=== PATIENT | female | born 1995 | race Caucasian/White ===

== ENCOUNTER 2022-09-11 07:19 | Outpatient (CLI) | payer BC, SELFPAY ==
--- NOTE | ~2022-09-11 | XR_ITS ---
Supine views of the abdomen Clinical history: Abdominal bloating Findings: Bowel gas pattern is nonspecific. No evidence for obstruction or free air. No abnormal mass lesion or calcification is seen. Osseous structures are intact. Impression: No significant abnormality is seen. Reviewed, dictated and finalized at location [] [employer]IST Impression: No significant abnormality is seen.
[2022-09-11 07:50] LABS: Add Urine Microscopic? YES; Appearance Urine Clear (Clear); Basophils Absolute Auto 0.05 K/mm3 (0.00-0.10); Basophils Percent Auto 0.9 % (0.0-1.0); Bilirubin Urine Negative (Negative); Blood Urine Trace-Intact (Negative); Color Urine Yellow (Yellow); Eosinophils Absolute Auto 0.17 K/mm3 (0.02-0.50); Glucose Urine UA Negative (Negative); Hematocrit 37.8 % (35.0-49.0); Hemoglobin 12.8 g/dL (12.0-15.0); Immature Granulocyte Absolute 0.03 K/mm3 (0.00-0.00); Immature Granulocyte Percent A 0.5 % (0.0-0.0); Ketones Urine Negative (Negative); Leukocyte Esterase Ur Negative LEU/UL (Negative); Lymphocytes Absolute Auto 1.64 K/mm3 (1.10-4.50); Mean Corpuscular HGB Conc 33.9 g/dL (32.0-36.0); Mean Corpuscular Hemoglobin 32.1 pg (27.0-31.0); Mean Corpuscular Volume 94.7 fL (78.0-102.0); Mean Platelet Volume 11.1 fl (9.2-11.8); Monocytes Absolute Auto 0.37 K/mm3 (0.10-0.90); Monocytes Percent Auto 6.5 % (2.0-11.0); Neutrophils Absolute Auto 3.4 K/mm3 (1.7-7.2); Neutrophils Percent Auto 60.1 % (50.0-70.0); Nitrate Urine Negative (Negative); Platelet Count Result 200 K/mm3 (150-420); Protein Urine Negative (Negative); Red Blood Count 3.99 M/mm3 (4.20-5.40); Red Cell Distribution Width 12.1 % (11.6-14.4); Specific Grav Ur >= 1.030 (1.010-1.020); Urobilinogen Urine 0.2 mg/dL (0.2-1.0); White Blood Count 5.7 K/mm3 (4.8-10.8)
[2022-09-11 08:21] LABS: Bacteria Urine 1+ /hpf; RBC Urine None seen /hpf (0-2); Squamous Epithelial Cell Urine Moderate /hpf (Few); WBC Urine 0-3 /hpf (0-3)
[2022-09-11 08:52] LABS: Erythrocyte Sedimentation Rate 8 mm/hr (0-15)
[2022-09-11 08:56] LABS: Alanine Aminotransferase 24 U/L (14-59); Albumin Level 4.5 g/dL (3.4-5.0); Alkaline Phosphatase 31 U/L (46-116); Anion Gap 10 mmol/L (8-16); Aspartate Amino Transferase 14 U/L (15-37); Blood Urea Nitrogen 16 mg/dL (7-18); Calcium 9.3 mg/dL (8.5-10.1); Carbon Dioxide 27 mmol/L (21-32); Chloride 104 mmol/L (98-108); Estimated Glomerular Filt Rate > 60; Glucose 92 mg/dL (70-99); Osmolality Calculated 293 mOsm/kg (285-295); Potassium 3.8 mmol/L (3.5-5.1); Sodium 141 mmol/L (136-145); Total Protein 7.4 g/dL (6.4-8.2)
[2022-09-11 08:59] LABS: CRP < 0.5 mg/dL (0.0-0.9)
[2022-09-11 11:23] LABS: Thyroid Stimulating Hormone Reflex 2.04 u/IU/mL (0.36-3.74)
[2022-09-15 10:48] LABS: Tissue Transglutaminase IgA Ab <1.0 U/mL (<15.0)
[2022-09-15 21:28] LABS: Immunoglobulin A 136 mg/dL (47-310)
[2022-09-16 16:33] LABS: H pylori Ag Stool Not Detected (Not Detected)
[2022-09-16 16:45] LABS: Tissue Transglutaminase IgG Ab <1.0 U/mL (<15.0)
[2022-09-18 21:12] LABS: Calprotectin, Stool 93 mcg/g
== END 2022-09-11 07:20 | disposition home or self-care (01) ==
PROVIDERS: PCP Family Medicine
DX: K21.9 Gastro-esophageal reflux disease without esophagitis (principal); R14.0 Abdominal distension (gaseous); R10.13 Epigastric pain; R19.8 Other specified symptoms and signs involving the digestive system and abdomen; R10.9 Unspecified abdominal pain
CPT/HCPCS: 36415; 74018; 80053; 81001; 81005; 82784; 83516; 83993; 84443; 85025; 85652; 86003; 86140; 87045; 87338; 87427; 87493

== ENCOUNTER 2022-11-18 11:35 | Outpatient (CLI) | payer BC, SELFPAY ==
--- NOTE | ~2022-11-18 | XR_ITS ---
XR hysterosalpingogram DATE: 11/18/2022 12:25 INDICATION: Infertility TECHNIQUE: Fluoroscopy and spot images were performed during a hysterosalpingogram performed by Dr. Beau mcintyre. 0.3 minutes fluoroscopy time 1.49G Gycm 2 COMPARISON: None FINDINGS: Normal caliber of the uterine cavity and fallopian tubes. There is bilateral free peritonea l spillage from the fallopian tubes. IMPRESSION: Normal examination Reviewed, dictated and finalized at Location A. Reviewed, dictated and finalized at location A. [facility] [employer] IMPRESSION: Normal examination
== END 2022-11-18 11:36 | disposition home or self-care (01) ==
PROVIDERS: PCP Family Medicine; Visit Provider Obstetrics & Gynecology
DX: N97.9 Female infertility, unspecified (principal)
CPT/HCPCS: 58340; 74740; Q9966

== ENCOUNTER 2023-09-24 04:58 | Inpatient (IN) | payer BC, SELFPAY ==
--- NOTE | 2023-09-23 16:25 | P.HP_ITS ---
H&P: HPI History of Present Illness Date/Time: 09/23/23 16:25 Chief Complaint: Hypertension at term Narrative: this is a 28 year para 0 with last menstrual 12/13/2022, EDC of 09/28/2023, presenting at 39 weeks gestation for induction of labor secondary to elevated blood pressures. She is negative for group B strep but she has elevated blood pressures. She is admitted for induction of labor and PIH w orkup. The cervix is favorable under diabetic screen was normal [facility] Family History Family History Grandparent Congestive heart failure Social History Social History Substance use: never Spiritual care concerns: No Meds Home Medications and Allergies Home Medications Medication Instructions Recorded Confirmed Type bupropion HCl 300 mg 24 hr tablet, 300 mg PO QAM 09/02/23 09/02/23 History extended release dicyclomine 20 mg tablet 20 mg PO BID 09/02/23 09/02/23 History prenat.vits,pawan,mcm-wucu-bkgnt 1 tablet 09/02/23 History Allergies Allergy/AdvReac Type Severity Reaction Status Date / Time No Known Allergies Allergy Verified 09/02/23 12:37 Exam Const: General: cooperative, healthy appearing, comfortable and average body habitus Orientation/consciousness: oriented to person, oriented to place and oriented to time HENMT: Head: normal to inspection Resp: Effort & Inspection: normal respiratory effort Cardio: Rate: regular rate Rhythm: regular rhythm Heart sounds: S1 normal heart sound present and S2 normal heart sound present GI: Inspection: normal to inspection ( gravid soft uterus) : External Female Exam: normal external appearance Speculum Exam - Vagina: normal appearance of the vagina Speculum Exam - Cervix: normal appearance of the cervix ( cervix 2.5/50/2) Assessment and Plan Assessment and plan (1) Term : Code(s): Z34.90 - Encounter for supervision of normal , unspecified, unspecified trimester Status: Acute (2) Gestational hypertension: Code(s): O13.9 - Gestational [-induced] hypertension without significant proteinuria, unspecified trimester Status: Acute Plan medical induction of labor. PIH workup. Spontaneous vaginal delivery expected. She has an epidural candidate
[2023-09-24] VITALS (94 sets, daily range): BP systolic 78–141; BP diastolic 42–101; PULSE 80–169; RESP 18; TEMP 36.4–37.6; O2SAT 97–100; BMI 33.0
--- NOTE | 2023-09-24 05:21 | LDADM ---
This patient, Kymberly Lang, was admitted to Labor/Delivery/Recovery 105 on 09/24/23 at 04:58. Plans for labor, pain management and were discussed with patient. Patient/family oriented to hospital policies and general routines including ID bracelet, bed and alarms, visiting hours, pain management, procedures, bathroom and other care routines, personal items, smoking policy, room service/diet and guest tray routines, infant security routines, and visiting hours. Patient/Family are encouraged to report perceived risks to care and to ask questions if they do not understand what they are told or what they should do. See OBIX for further documentation.
[2023-09-24 05:35] LABS: Hematocrit 33.6 % (37.0-47.0); Hemoglobin 10.9 g/dL (12.0-15.0); Mean Corpuscular HGB Conc 32.4 g/dl (32-36); Mean Corpuscular Hemoglobin 29.9 pg (26-34); Mean Corpuscular Volume 92.3 fl (80-100); Mean Platelet Volume 12.2 fl (7.4-10.4); Platelet Count Result 147 k/mm3 (150-375); Red Blood Count 3.64 M/mm3 (4.2-5.4); Red Cell Distribution Width 12.2 % (11.5-14.5); White Blood Count 12.7 K/mm3 (4.5-10.0)
[2023-09-24 05:47] LABS: Alanine Aminotransferase 18 U/L (6-35); Albumin Level 3.8 g/dL (3.5-5.1); Alkaline Phosphatase 166 U/L (38-126); Anion Gap 7 mmol/L (8-16); Aspartate Amino Transferase 24 U/L (14-36); Bilirubin,Total 0.4 mg/dL (0.2-1.3); Blood Urea Nitrogen 8 mg/dL (7-17); Calcium 9.2 mg/dL (8.4-10.2); Carbon Dioxide 20 mmol/L (22-30); Chloride 107 mmol/L (98-107); Estimated CRCL calculation 130 ml/min; Estimated Glomerular Filt Rate > 60; Glucose 94 mg/dL (65-110); Potassium 3.9 mmol/L (3.4-5.0); Sodium 134 mmol/L (137-145)
[2023-09-24] MEDS: OXYTOCIN 30 UNITS/NS 500 ML 30 UNITS/500 ML BAG 6 UNITS IV CONT (05:52)
[2023-09-24] MEDS: LACTATED RINGERS 1,000 ML 125 ML IV CONT ×3 (05:53→12:39)
--- NOTE | 2023-09-24 06:05 | PM.OBPNLAB ---
Pain Control Date/time seen: 09/24/23 06:05 Pain control: tolerating well Comments: bp ok Pelvic Exam Dilation (cm): 3 Effacement (%): 75 station: -2 Amniotic membrane status: Leaking
--- NOTE | 2023-09-24 06:32 | WPDANESEPP ---
Anes - Eval Pre Procedure Procedure: labor epidural Date/Time: 09/24/23 06:32 Surgeon: daniel Preop Diagnosis: pain during labor Pre Op Diagnosis: Induction of Labor Patient Data Age: 28 Gender: F Height: 1.65 m Weight: 90 kg Last Vital Signs Pulse 89 09/24/23 06:31 BP 120/79 09/24/23 06:31 O2 Del Method Room Air 09/24/23 05:20 Allergies Allergy/AdvReac Type Severity Reaction Status Date / Time No Known Allergies Allergy Verified 09/24/23 05:29 Home Medications Medication Instructions Recorded Confirmed Type bupropion HCl 300 mg 24 hr tablet, 300 mg PO QAM 09/02/23 09/24/23 History extended release dicyclomine 20 mg tablet 20 mg PO BID 09/02/23 09/24/23 History prenat.vits,pawan,reu-ugku-eatcw 1 tablet 09/02/23 History Laboratory Tests 09/24/23 05:12 WBC Pending RBC Pending Hgb Pending Hct Pending MCV Pending MCH Pending MCHC Pending RDW Pending Plt Count Pending MPV Pending Immature Gran % (Auto) Pending Neut % (Auto) Pending Lymph % (Auto) Pending [place] % (Auto) Pending Eos % (Auto) Pending Baso % (Auto) Pending Lymph # (Auto) Pending [place] # (Auto) Pending Eos # (Auto) Pending Baso # (Auto) Pending Abs Immat Gran (auto) Pending Absolute Neuts (auto) Pending Absolute Nucleated RBC Pending Nucleated RBC % Pending Sodium 134 L mmol/L (137-145) Potassium 3.9 mmol/L (3.4-5.0) Chloride 107 mmol/L (98-107) Carbon Dioxide 20 L mmol/L (22-30) Anion Gap 7 L mmol/L (8-16) BUN 8 mg/dL (7-17) Creatinine 0.60 L mg/dL (0.7-1.0) Estim Creat Clear Calc 130 ml/min Estimated GFR > 60 (59 - ) Glucose 94 mg/dL (65-110) Calcium 9.2 mg/dL (8.4-10.2) Total Bilirubin 0.4 mg/dL (0.2-1.3) AST 24 U/L (14-36) ALT 18 U/L (6-35) Alkaline Phosphatase 166 H U/L (38-126) Total Protein 7.0 g/dL (6.3-8.2) Albumin 3.8 g/dL (3.5-5.1) RPR Pending Patient hx anesthesia problems: none Family hx anesthesia problems: none Results Review: All pre-operative results and documents have been reviewed as part of the pre-operative evaluation. [facility] Past Medical History Medical History (Updated 09/24/23 @ 06:34 by Ignacia Sharpe CRNA) Anxiety Depression IBS (irritable bowel syndrome) Spinal stenosis Family History Family History Grandparent Congestive heart failure Social History Social History Smoking status: Never smoker Substance use: never Do You Feel Safe in your Home?: Yes Lack of Transportation: No Lack of Food: Never True Current Housing: I Have Housing Concerned About Future Housing: No Difficulty Paying Gas/Electric Bills: No Difficulty Paying for Meds: No Currently Unemployed: No Education: Trade/Vocational Certificate Difficulty w/ Childcare or Family Care: No Spiritual care concerns: No Exam Day of Procedure 09/24/23 06:32
[2023-09-24 06:40] LABS: Band Neutrophils Percent 1 % (0-6); Eosinophils Absolute Manual 0.38 K/mm3 (0.02-0.5); Eosinophils Percent Manual 3 % (0-4); Lymphocytes Absolute Manual 1.27 K/mm3 (1.1-4.5); Lymphocytes Percent Manual 10 % (18-44); Monocytes Absolute Manual 0.76 K/mm3 (0.1-0.90); Monocytes Percent Manual 6 % (3-9); Total Cells Counted 100
[2023-09-24 06:41] LABS: Basophils Absolute Manual 0.12 K/mm3 (0.0-0.1); Basophils Percent Manual 1 % (0-1)
[2023-09-24 06:42] LABS: Neutrophils Absolute Manual 10.16 K/mm3 (1.7-7.2); Neutrophils Percent Manual 79 % (46-73)
[2023-09-24 06:43] LABS: Large Platelets Present
[2023-09-24 06:44] LABS: Schistocytes None Seen (NORMAL)
[2023-09-24] MEDS: fentaNYL CITRATE INJ (*CRX) 100 MCG/2 ML VIAL 50 MCG IV PUSH (09:34)
--- NOTE | 2023-09-24 10:35 | PM.OBPNLAB ---
Pain Control Date/time seen: 09/24/23 10:35 Pain control: tolerating well and epidural Pelvic Exam Dilation (cm): 4 Effacement (%): 75 station: -2 Amniotic membrane status: Leaking
[2023-09-24] MEDS: PHENYLEPHRINE 1,000 MCG/10 ML SYRINGE 100 MCG IV PUSH (11:39)
--- NOTE | 2023-09-24 12:28 | PM.OBPNLAB ---
Pain Control Date/time seen: 09/24/23 12:28 Pelvic Exam Dilation (cm): 6 Effacement (%): 75 station: -2 Amniotic membrane status: Leaking Contractions Monitor mode: Internal
[2023-09-24 12:32] LABS: Rapid Plasma Reagin Non-Reactive (NonReactive)
--- NOTE | 2023-09-24 14:37 | PM.DS ---
DS: Admitting Diagnosis Discharge Date 09/26/2023 Admitting Diagnosis Term /gestational hypertension DS: Discharge Diagnosis Discharge Diagnosis (1) Gestational hypertension: Code(s): O13.9 - Gestational [-induced] hypertension without significant proteinuria, unspecified trimester Status: Acute (2) Term : Code(s): Z34.90 - Encounter for supervision of normal , unspecified, unspecified trimester Status: Acute DS: Summary Hospital Course Reason for hospitalization: patient was admitted at 39 weeks gestation for induction of labor secondary to elevated blood pressures Hospital Course: patient underwent spontaneous vaginal delivery which was unremarkable with epidural anesthesia on 09/24/2023 at 2:25 p.m.. She remained afebrile. She was up, voiding without difficulty, ambulating, eating regular diet, again without complaints. Time Spent with Patient Time attestation: Total time spent providing and/or coordinating discharge services: Exam Const: General: cooperative, healthy appearing and comfortable Nutritional Appearance: average body habitus Orientation/consciousness: oriented to person, oriented to place and oriented to time HENMT: Head: normal to inspection Resp: Effort & Inspection: normal respiratory effort Cardio: Rate: regular rate Rhythm: regular rhythm Heart sounds: S1 normal heart sound present and S2 normal heart sound present GI: Inspection: normal to inspection ( Fundus firm below the umbilicus) : External Female Exam: normal external appearance DS: Data Data Completed and Pending Labs on day of discharge: Labs from last 24 hours 09/24/23 05:12 WBC 12.7 H RBC 3.64 L Hgb 10.9 L Hct 33.6 L MCV 92.3 MCH 29.9 MCHC 32.4 RDW 12.2 Plt Count 147 L MPV 12.2 H Immature Gran % (Auto) Not Reportable Neut % (Auto) Not Reportable Lymph % (Auto) Not Reportable [place] % (Auto) Not Reportable Eos % (Auto) Not Reportable Baso % (Auto) Not Reportable Lymph # (Auto) Not Reportable [place] # (Auto) Not Reportable Eos # (Auto) Not Reportable Baso # (Auto) Not Reportable Abs Immat Gran (auto) Not Reportable Absolute Neuts (auto) Not Reportable Absolute Nucleated RBC Not Reportable Total Counted 100 Neutrophils % (Manual) 79 H Band Neutrophils % 1 Lymphocytes % (Manual) 10 L Monocytes % (Manual) 6 Eosinophils % (Manual) 3 Basophils % (Manual) 1 Nucleated RBC % Not Reportable Abs Neuts (Manual) 10.16 H Abs Lymphs (Manual) 1.27 Abs Monocytes (Manual) 0.76 Absolute Eos (Manual) 0.38 Abs Basophils (Manual) 0.12 H Platelet Estimate Slightly decreased Large Platelets Present Schistocytes None seen Sodium 134 L Potassium 3.9 Chloride 107 Carbon Dioxide 20 L Anion Gap 7 L BUN 8 Creatinine 0.60 L Estim Creat Clear Calc 130 Estimated GFR > 60 Glucose 94 Calcium 9.2 Total Bilirubin 0.4 AST 24 ALT 18 Alkaline Phosphatase 166 H Total Protein 7.0 Albumin 3.8 RPR Non-reactive Blood Type AB Positive Antibody Screen Negative Discharge Plan Discharge Attending physician on discharge: Juliano Diaz Discharging Clinician: Juliano Diaz Patient Disposition: Home, Self-Care Activity: may shower and pelvic rest Diet: heart healthy Wound Care Instructions: follow printed instructions Patient Instructions: Antibiotic Form Stand Alone Forms: General Discharge Information Follow-up/Referrals: Anselmo Pak MD [Physician] - Discharge Medications: Continued dicyclomine 20 mg Tablet 20 mg PO BID #2 Tablet 1 tablet bupropion HCl 300 mg Tablet Extended Release 24 Hr 300 mg PO QAM Date of admission: 09/24/23 04:58 Primary Care Provider: Bree,Nils Admitting Provider: Anselmo Pak Attending physician on admission: Anselmo Pak Condition: Stable
[2023-09-24] MEDS: OXYTOCIN 30 UNITS/NS 500 ML 30 UNITS/500 ML BAG 125 UNITS IV CONT (14:40)
--- NOTE | 2023-09-24 14:40 | PM.OBPRVD ---
OB - Vaginal Delivery Note Procedure Delivery date: 09/24/23 Events: Gestational Hypertension Induction method: AROM Delivery augmentation: Pitocin Delivery monitor: External FHT and Internal Uterine Route of delivery: Episiotomy description: None Laceration Description: None Quantitative Blood Loss (ml): 161 Anesthesia type: Epidural Disposition: Floor Baby Date of : 09/24/23 Time of : 14:25 Weeks of gestation at delivery: 39 gender: Female presentation: vertex position: Right Occiput Anterior Placenta delivery description: Spontaneous Cord Vessel Description: 3 Vessels score one minute: 8 score five minutes: 8
--- NOTE | 2023-09-24 17:00 | OBPPTRN ---
Patient transferred to post room # 283 via wheelchair. Support person present. Oriented to unit, room, information board, rooming in, admission packet and security measures. Patient verbalizes understanding.
[2023-09-24] MEDS: ACETAMINOPHEN 325 MG TABLET 650 MG PO ×2 (17:15→23:20)
[2023-09-24] MEDS: IBUPROFEN 600 MG TABLET PO (19:03)
[2023-09-24] MEDS: LORATADINE 10 MG TABLET (19:03)
[2023-09-25] VITALS: BP 108/62; PULSE 92; RESP 18; TEMP 36.8
[2023-09-25 04:00] VITALS: BP 121/76
[2023-09-25] MEDS: IBUPROFEN 600 MG TABLET PO ×3 (04:18→23:16)
[2023-09-25 04:21] LABS: Hematocrit 28.2 % (37.0-47.0)
--- NOTE | 2023-09-25 07:59 | PM.OBPNVD ---
OB - PN: Subj Subjective Date/time seen: 09/25/23 07:59 Patient comments: no complaints and pain well controlled baby status: doing well OB - PN: Obj Data Labs 09/25/23 04:13 09/24/23 05:12 Labs: Laboratory Results - last 24 hr 09/24/23 09/25/23 05:12 04:13 Hgb 9.0 L Hct 28.2 L RPR Non-reactive OB - PN A/P Plan day: 1 Plan: routine care Time Spent With Patient Time: Total time spent is greater than 50% in coordination of care (as documented) at patient's floor/unit and/or counseling patient: Time with patient: less than 15 minutes Exam Const: General: cooperative, healthy appearing and comfortable Nutritional Appearance: average body habitus Orientation/consciousness: oriented to person, oriented to place and oriented to time GI: Inspection: normal to inspection
[2023-09-25 08:25] VITALS: BP 133/88; PULSE 89; RESP 16; TEMP 36.7; O2SAT 100
[2023-09-25] MEDS: POLYSACCHARIDE IRON COMPLEX 150 MG CAPSULE PO ×2 (09:48→17:20)
[2023-09-25] MEDS: ACETAMINOPHEN 325 MG TABLET 650 MG PO ×2 (09:48→21:04)
[2023-09-25] MEDS: DOCUSATE SODIUM 100 MG CAPSULE PO ×2 (09:49→17:20)
[2023-09-25] MEDS: MULTIVIT/MIN/PREN/FOL AC/IRON TABLET 1 TAB PO (09:49)
[2023-09-25 12:00] VITALS: BP 119/83; PULSE 72; RESP 16; TEMP 36.8; O2SAT 100
--- NOTE | 2023-09-25 12:07 | WPDANLDPN2 ---
Anes-Prog Note L&D Date/Time: 09/25/23 12:07 Comfortable throughout: labor and delivery Neuraxial method: epidural Epidural/Spinal procedure site: tender (tender at site, site clean and dry) Neuro status: Neuro function grossly intact. Cardiovascular status: normal Respiratory status: normal Airway patency: baseline Mental status: baseline Post-Op hydration status: normal Vital Signs: Last Vital Signs Temp 36.7 C 09/25/23 08:25 Pulse 89 09/25/23 08:25 Resp 16 09/25/23 08:25 BP 133/88 09/25/23 08:25 Pulse Ox 100 09/25/23 08:25 O2 Del Method Room Air 09/24/23 05:20 Pain score (VAS): 2/10 I/O: Intake & Output 09/24/23 09/25/23 09/25/23 23:59 07:59 15:59 Intake Total 250 Balance 250 Post-procedural complaints: none Patient feedback: Patient satisfied with anesthetic care.
[2023-09-25 20:50] VITALS: BP 117/80; PULSE 87; RESP 16; TEMP 37.4; O2SAT 98
--- NOTE | 2023-09-26 07:44 | PM.OBPNVD ---
OB - PN: Subj Subjective Date/time seen: 09/26/23 07:44 Patient comments: no complaints and pain well controlled baby status: doing well OB - PN: Obj Data Labs 09/25/23 04:13 09/24/23 05:12 OB - PN A/P Plan day: 2 Plan: routine care, discharge home and follow up 6 weeks Time Spent With Patient Time: Total time spent is greater than 50% in coordination of care (as documented) at patient's floor/unit and/or counseling patient: Time with patient: less than 15 minutes Exam Const: General: cooperative, healthy appearing and comfortable Nutritional Appearance: average body habitus Orientation/consciousness: oriented to person, oriented to place and oriented to time HENMT: Head: normal to inspection GI: Inspection: normal to inspection
[2023-09-26 07:45] VITALS: BP 125/80; PULSE 84; RESP 20; TEMP 36.7; O2SAT 99
[2023-09-26 08:00] VITALS: PULSE 84; RESP 20; O2SAT 99
[2023-09-26] MEDS: DOCUSATE SODIUM 100 MG CAPSULE PO (08:57)
[2023-09-26] MEDS: MULTIVIT/MIN/PREN/FOL AC/IRON TABLET 1 TAB PO (08:58)
[2023-09-26] MEDS: IBUPROFEN 600 MG TABLET PO (08:58)
[2023-09-26] MEDS: POLYSACCHARIDE IRON COMPLEX 150 MG CAPSULE PO (08:58)
--- NOTE | 2023-09-26 09:23 | PC.NURSE ---
Patient viewed the discharge video Mother & Baby Care, The First Two Weeks . Patient was given the opportunity and encouraged to ask questions. Patient verbalized understanding of information shared and has been given the mother/baby guide for home reference.
[2023-09-28 11:19] VITALS: BP 120/84; PULSE 100; RESP 18; TEMP 37.3; O2SAT 100
== END 2023-09-26 11:03 | disposition home or self-care (01) | DRG 807 ==
LOC: ANHLDR 14:40 → ANHOB2 09-26 09:25 → ANHLDR 09-28 11:44 → ANHOB2 09-28 11:44
PROVIDERS: Admitting Provider Obstetrics & Gynecology; PCP Family Medicine; Visit Provider Obstetrics & Gynecology
DX: O13.4 Gestational [pregnancy-induced] hypertension without significant proteinuria, complicating childbirth (principal); Z37.0 Single live birth; Z3A.39 39 weeks gestation of pregnancy
CPT/HCPCS: 36415; 80053; 85014; 85018; 85025; 86592; 86850; 86900; 86901; A9270; J2371; J2590; J2795; J3010; J7120

== ENCOUNTER 2025-02-26 17:08 | Emergency (ER) | payer SELFPAY ==
[2025-02-26 17:18] VITALS: BP 136/95; PULSE 103; RESP 16; TEMP 36.9; O2SAT 100
--- NOTE | 2025-02-26 17:20 | ED.SKABFB ---
HPI - Skin/Abscess/Foreign Bdy General Chief complaint: Skin/Abscess/Foreign Body Stated complaint: Tick Bite/Vomiting/Chest Tightness Source: patient Mode of arrival: ambulatory Limitations: no limitations History of Present Illness HPI narrative: Patient is a 29-year-old female who presents to the clinic with complaints of epigastric pain, nausea, and diarrhea x 1 day. She states that she vomited 3 times yesterday. She was supposed to have GI scope done a couple years ago, but then she ended up and was unable to do that. She does have a history of acid reflux and IBS. She has been taking Tums over the counter, but has had minimal relief. Denies any changes in her food, increased stress, or concern for . Related Data Home Medications ?Medication ?Instructions ?Recorded ?Confirmed ?Last Taken ?Type bupropion HCl 300 mg 24 hr tablet, 300 mg PO QAM 09/02/23 02/26/25 09/02/23 08:00 History extended release dicyclomine 20 mg tablet 20 mg PO BID 09/02/23 02/26/25 09/02/23 08:00 History famotidine 40 mg tablet 40 mg PO DAILY 02/26/25 02/26/25 Unknown History Allergies Allergy/AdvReac Type Severity Reaction Status Date / Time No Known Allergies Allergy Verified 02/26/25 17:16 Review of Systems Review of Systems: CONSTITUTIONAL: Denies body aches, fever, chills, or sweats. EYES: Denies visual changes, redness, or discharge. ENT: Denies rhinorrhea, congestion CARDIOVASCULAR: Denies chest pain, palpitations, or edema. RESPIRATORY: Denies cough or dyspnea. GASTROINTESTINAL: Reports abdominal pain, nausea, and diarrhea. Denies vomiting. MUSCULOSKELETAL: Denies back pain, joint pain, or myalgia. NEUROLOGIC: Denies headache, numbness, tingling, or weakness. All systems reviewed & are unremarkable except as noted in HPI and below PMFSH Past Medical History Medical History IBS (irritable bowel syndrome) Spinal stenosis Depression Anxiety Family History Family History Grandparent Congestive heart failure Social History Social History Smoking status: Never smoker Substance use: never Do You Feel Safe in your Home?: Yes Lack of Transportation: No Lack of Food: Never True Current Housing: I Have Housing Concerned About Future Housing: No Difficulty Paying Gas/Electric Bills: No Difficulty Paying for Meds: No Currently Unemployed: No Education: Trade/Vocational Certificate Difficulty w/ Childcare or Family Care: No Spiritual care concerns: No Comments At time of signature, I have reviewed and agree with nursing past medical, surgical, social and family history unless otherwise noted. Please see nursing chart for further information. There is no relevant family history pertinent to the presenting complaint. Exam Narrative: GENERAL: Well-appearing HEAD: Normocephalic, atraumatic. EYES: ?conjunctivae clear, and EOMI. ABDOMEN: Soft, flat, nondistended. Epigastric tenderness noted on palpation. No guarding, rebound tenderness, or rigid. No pulsatile masses. Bowel sounds x4. No organomegaly. Negative Guidry's sign. No periumbilical tenderness. No Supra pubic tenderness or distension. Good femoral pulses bilaterally. No hernia noted. No scars or surface trauma. ENT: Mucous membranes moist. Oropharynx without edema, erythema or lesions. NECK: Supple. No lymphadenopathy CHEST: Clear to auscultation. HEART: Regular rate and rhythm. SKIN: Warm, dry. ? NEURO: ?Alert and oriented x3.? Course Course Level of Care: Express Care Visit Vital Signs Vital signs: Vital Signs Temperature 98.4 F 02/26/25 17:18 Pulse Rate 103 H 02/26/25 17:18 Respiratory Rate 16 02/26/25 17:18 Blood Pressure 136/95 H 02/26/25 17:18 Pulse Oximetry 100 02/26/25 17:18 Oxygen Delivery Room Air 02/26/25 17:18 Temperature 98.4 F 02/26/25 17:18 Pulse Rate 103 H 02/26/25 17:18 Respiratory Rate 16 02/26/25 17:18 Blood Pressure 136/95 H 02/26/25 17:18 Pulse Oximetry 100 02/26/25 17:18 Oxygen Delivery Room Air 02/26/25 17:18 Reviewed. MDM - Skin/Abscess/Foreign Bdy MDM Narrative Medical decision making narrative: Discussed physical exam findings. Pantoprazole given for acid reflux. Advised patient to follow up with her GI doctor. Advised supportive measures and signs/symptoms to go to the ER. Pt is appropriate for outpatient treatment and follow up. Differential Diagnosis Differential diagnosis: Likely other (GERD, PUD, gastritis, pancreatitis, gallbladder disease, hepaititis, acute LA, pericarditis, aortic dissection, pneumonia, pyelonephritis, bowel obstruction, PE, ) Critical Care Time Critical Care Time Critical Care Time: No Discharge Plan Discharge Clinical Impression: Acute epigastric pain Patient Disposition: Home Condition: Stable Instructions: Epigastric Pain (ED) Additional Instructions: Take pantoprazole as prescribed. Stay hydrated. Take small sips of fluid containing electrolytes frequently. Clear liquids (broth, jello, tea, sprite, pedialyte) Carpenter foods (bananas, rice, applesauce, toast, crackers) Avoid fatty, greasy, fried or spicy foods. Limit dairy until symptoms are improved. [id number] Imodium according to package directions Recommend probiotic such as align or lactobacillus to help with symptoms. You should go to the hospital if you experience persistent nausea and vomiting that does not resolve and does not allow you to tolerate any food or fluids, fevers, increasing abdominal pain, persistent diarrhea, dizziness, fainting, or for any other concerns. Follow up with primary care provider in 3 days. Patient Language: Luxembourgish Prescriptions: New pantoprazole 40 mg tablet,delayed release (DR/EC) 40 mg PO DAILY 14 Days Qty: 14 0RF No Action famotidine 40 mg tablet 40 mg PO DAILY dicyclomine 20 mg Tablet 20 mg PO BID bupropion HCl 300 mg Tablet Extended Release 24 Hr 300 mg PO QAM Follow-up/Referrals: PHYSICIAN,AERIAL GUNNER SUPERINTENDENT [Primary Care Provider] - Time of Disposition: 17:35
== END 2025-02-26 17:38 | disposition home or self-care (01) ==
DX: R10.13 Epigastric pain (principal); K21.9 Gastro-esophageal reflux disease without esophagitis; F41.9 Anxiety disorder, unspecified; F32.A Depression, unspecified; M48.00 Spinal stenosis, site unspecified
CPT/HCPCS: 99213; G0463